=== PATIENT | female | born 1995 | race Caucasian/White ===

== ENCOUNTER → 2024-11-09 | Day surgery (SDC) | payer OTHER ==
[~2024-11-09] MED LIST: CIPRO500 MG PO; CLONAZEPAM1 MG PO; FLOMAX0.4 MG PO; HYDROCODON-ACE1 EAC9 PO; HYDROMORPHONE 1MG/1ML INJ ONE; LIDOCAINE HCL 2% LOCAL INJ 5 ML SDV VIAL INJ ONE; MIDAZOLAM HCL 2 MG/2 ML VIAL ONE; MIDODRINE HCL5 MG PO; NEXPLANON68 MG TD; NURTEC ODT75 MG PO; ONDANSETRON HCL INJ 2MG/ML 2ML 2 MG/ML VIAL ONE; ONDANSETRON ODT8 MG PO; OXYBUTYNIN CHLOR5 MG PO; PHENAZOPYRIDINE HCL 100 MG TAB ONE; PHENERGAN50 MG/1 ML PO; PROAIR DIGIHAL90 MCG INH; PROMETHAZINE12.5 M1 PO; PROPOFOL IV EMULSION 10 MG/ML 20 ML VIAL ONE; PROPRANOLOL HCL10 MG PO; SEROQUEL100 MG PO; TIZANIDINE HCL4 M1 PO; TIZANIDINE HCL4 MG PO; TRAMADOL HCL 50 MG TAB ONE; XANAX0.5 MG PO; [UNRECOGNIZED DRUG - OTHER] IV; [UNRECOGNIZED DRUG - OTHER] PO
[2024-11-09] MEDS: CEFTRIAXONE 1 GM VIAL ONE (12:39)
[2024-11-09 12:40] LABS: BASOPHILS % 0.4 % (0.0-1.0); EOSINOPHILS # (AUTO) 0.1 (0.0-0.4); EOSINOPHILS % 1.1 % (0.0-6.0); HEMATOCRIT 38.2 % (34.2-44.1); HEMOGLOBIN 12.3 g/dL (12.0-16.0); LYMPHOCYTES # (AUTO) 1.9 (1.0-3.2); LYMPHOCYTES % 24.1 % (18.0-39.1); MEAN CORPUSCULAR HEMOGLOBIN 29.6 pg (28-32); MEAN CORPUSCULAR HGB CONC 32.2 g/dL (31-35); MONOCYTES # (AUTO) 0.5 (0.2-0.8); MONOCYTES % 6.3 % (4.4-11.3); NEUTROPHILS # (AUTO) 5.4 (2.1-6.9); NEUTROPHILS % 67.8 % (38.7-80.0); PLATELET COUNT 334 x10e3/uL (140-360); RED BLOOD COUNT 4.15 x10e6/uL (3.6-5.1); WHITE BLOOD COUNT 7.93 x10e3/uL (4.8-10.8)
[2024-11-09] MEDS: GENTAMICIN 80MG/NS 100 ML 200 ML IV ONE (12:40)
[2024-11-09] MEDS: LACTATED RINGER'S 1,000 ML ONE (12:40)
[2024-11-09 12:59] LABS: ANION GAP 15.6 mmol/L (8-16); CALCIUM 9.7 mg/dL (8.4-10.2); CREATININE, SERUM 0.69 mg/dL (0.57-1.11); POTASSIUM 3.6 mmol/L (3.5-5.1)
[2024-11-09 16:12] VITALS: TEMP 97.9
[2024-11-09] MEDS: HYDROMORPHONE 1MG/1ML INJ IV ONE ×4 (16:14→16:35)
[2024-11-09] MEDS: PHENAZOPYRIDINE HCL 100 MG TAB PO ONE (16:25)
[2024-11-09] MEDS: TRAMADOL HCL 50 MG TAB PO ONE (17:05)
[2024-11-09 17:30] VITALS: BP 120/83; PULSE 75; RESP 18; O2SAT 100
== END | disposition home or self-care (01) ==
LOC: OR 11:19
PROVIDERS: ATTEND Urology
DX: R33.8 Other retention of urine (principal); N39.0 Urinary tract infection, site not specified; R31.29 Other microscopic hematuria; N81.2 Incomplete uterovaginal prolapse; G65.0 Sequelae of Guillain-Barre syndrome; N31.2 Flaccid neuropathic bladder, not elsewhere classified; G61.81 Chronic inflammatory demyelinating polyneuritis; K21.9 Gastro-esophageal reflux disease without esophagitis; J45.909 Unspecified asthma, uncomplicated; G62.9 Polyneuropathy, unspecified; G43.909 Migraine, unspecified, not intractable, without status migrainosus; Z79.899 Other long term (current) drug therapy
CPT/HCPCS: 36415; 51040; 74420; 80048; 81025; 85025; 87086; C1758; C1769; J0696; J1171; J1580; J2003; J2250; J2405; J2704; J7121

== ENCOUNTER 2024-11-25 20:49 | Inpatient (IN) | payer SELFPAY ==
[~2024-11-25] VITALS: Ht 157.5 cm; Wt 62.6 kg
[~2024-11-25 20:49] MED LIST changes: -HYDROMORPHONE 1MG/1ML INJ ONE; -LIDOCAINE HCL 2% LOCAL INJ 5 ML SDV VIAL INJ ONE; -MIDAZOLAM HCL 2 MG/2 ML VIAL ONE; -ONDANSETRON HCL INJ 2MG/ML 2ML 2 MG/ML VIAL ONE; -OXYBUTYNIN CHLOR5 MG PO; -PHENAZOPYRIDINE HCL 100 MG TAB ONE; -PROMETHAZINE12.5 M1 PO; -PROPOFOL IV EMULSION 10 MG/ML 20 ML VIAL ONE; -TRAMADOL HCL 50 MG TAB ONE
[2024-11-25 21:15] VITALS: TEMP 99
[2024-11-25 22:08] LABS: COLOR,URINE RED (YELLOW); PREGNANCY TEST, URINE NEGATIVE (NEGATIVE)
[2024-11-25 22:22] LABS: CLARITY,URINE SL CLOUDY (CLEAR)
[2024-11-25 22:34] LABS: BASOPHILS # (AUTO) 0.1 (0.0-0.1); BASOPHILS % 0.6 % (0.0-1.0); EOSINOPHILS # (AUTO) 0.4 (0.0-0.4); EOSINOPHILS % 4.2 % (0.0-6.0); HEMATOCRIT 36.8 % (34.2-44.1); HEMOGLOBIN 12.5 g/dL (12.0-16.0); LYMPHOCYTES # (AUTO) 2.6 (1.0-3.2); LYMPHOCYTES % 29.8 % (18.0-39.1); MEAN CORPUSCULAR HEMOGLOBIN 29.3 pg (28-32); MEAN CORPUSCULAR VOLUME 86.2 fL (81-99); MONOCYTES # (AUTO) 0.7 (0.2-0.8); MONOCYTES % 7.7 % (4.4-11.3); NEUTROPHILS % 57.5 % (38.7-80.0); PLATELET COUNT 376 x10e3/uL (140-360); RED BLOOD COUNT 4.27 x10e6/uL (3.6-5.1); RED CELL DISTRIBUTION WIDTH 12.3 % (11.7-14.4)
[2024-11-25 22:43] LABS: BILIRUBIN,URINE NEGATIVE (NEGATIVE); GLUCOSE, URINE NEGATIVE (NEGATIVE); KETONES,URINE 1+ (NEGATIVE); LEUKOCYTE ESTERASE ,URINE NEGATIVE (NEGATIVE); NITRITE,URINE NEGATIVE (NEGATIVE); PH,URINE 6.5 (5 - 7); PROTEIN,URINE DIPSTICK >=300 (NEGATIVE); URINE UROBILINOGEN 0.2 mg/dL (0.2 - 1)
[2024-11-25] MEDS: KETOROLAC TROMETHAMINE 30 MG/ML VIAL IV STA (22:52)
[2024-11-25 22:58] LABS: ANION GAP 18.8 mmol/L (8-16); CREATININE, SERUM 0.71 mg/dL (0.57-1.11); POTASSIUM 3.8 mmol/L (3.5-5.1)
[2024-11-25 23:04] LABS: RBC,URINE >50 /HPF (0-5)
[2024-11-25 23:05] LABS: BACTERIA,URINE MODERATE /HPF; EPITHELIAL CELLS,URINE FEW /LPF
[2024-11-25] MEDS ORDERED: IOPAMIDOL 370 MG/ML 100 ML INFUS..BTL INJ ONE (23:55)
[2024-11-25] MEDS ORDERED: SODIUM CHLORIDE 0.9% 200 ML ONE (23:55)
[2024-11-26] VITALS (7 sets, daily range): BP systolic 92–118; BP diastolic 55–85; PULSE 55–87; RESP 12–18; TEMP 97.9–98.8; O2SAT 99–100
[2024-11-26] MEDS: ONDANSETRON HCL INJ 2MG/ML 2ML 2 MG/ML VIAL IV STA
[2024-11-26] MEDS: Morphine 4mg INJECTION 4 MG/ML INJ IV ONE (00:37)
[2024-11-26] MEDS: ONDANSETRON HCL INJ 2MG/ML 2ML 2 MG/ML VIAL IV PRN (04:28)
[2024-11-26] MEDS: HYDROMORPHONE 1MG/1ML INJ IV PRN (04:28)
[2024-11-26] MEDS: SODIUM CHLORIDE 0.9% 1000ML 1,000 ML IV ONE (04:29)
[2024-11-26] MEDS ORDERED: PROMETHAZINE12.5 M1 PO (05:50)
[2024-11-26] MEDS ORDERED: OXYBUTYNIN CHLOR5 MG PO (06:16)
[2024-11-26] MEDS: SOLIFENACIN SUCCINATE 5 MG TAB PO SCH (09:43)
[2024-11-26] MEDS: PHENAZOPYRIDINE HCL 100 MG TAB PO SCH (09:43)
[2024-11-26] MEDS: GABAPENTIN 100 MG CAP PO SCH (09:43)
[2024-11-26] MEDS: KETOROLAC TROMETHAMINE 30 MG/ML VIAL IV PRN (09:44)
[2024-11-26] MEDS: CELECOXIB 100 MG CAP PO SCH (09:44)
[2024-11-26] MEDS: SODIUM CHLORIDE 0.9% 1000ML 1,000 ML IV SCH (11:07)
[2024-11-26] MEDS: ALPRAZOLAM 0.5 MG TAB PO SCH (13:27)
[2024-11-26] MEDS: TAMSULOSIN HCL 0.4 MG CAP PO SCH (16:36)
[2024-11-26] MEDS: TRAMADOL HCL 50 MG TAB PO PRN (20:21)
[2024-11-26] MEDS: QUETIAPINE FUMARATE 100 MG TAB PO SCH (20:21)
[2024-11-27] VITALS (10 sets, daily range): BP systolic 92–127; BP diastolic 46–86; PULSE 59–106; RESP 16–18; TEMP 97.3–98.7; O2SAT 99–100
[2024-11-27] MEDS: TIZANIDINE HCL 4 MG TAB PO SCH (04:53)
[2024-11-27 05:52] LABS: BASOPHILS # (AUTO) 0.1 (0.0-0.1); BASOPHILS % 0.9 % (0.0-1.0); EOSINOPHILS # (AUTO) 0.4 (0.0-0.4); EOSINOPHILS % 7.6 % (0.0-6.0); HEMATOCRIT 32.9 % (34.2-44.1); HEMOGLOBIN 10.4 g/dL (12.0-16.0); LYMPHOCYTES # (AUTO) 2.4 (1.0-3.2); LYMPHOCYTES % 41.1 % (18.0-39.1); MEAN CORPUSCULAR HEMOGLOBIN 29.5 pg (28-32); MEAN CORPUSCULAR HGB CONC 31.6 g/dL (31-35); MEAN CORPUSCULAR VOLUME 93.2 fL (81-99); MONOCYTES # (AUTO) 0.5 (0.2-0.8); MONOCYTES % 8.1 % (4.4-11.3); NEUTROPHILS # (AUTO) 2.5 (2.1-6.9); NEUTROPHILS % 42.3 % (38.7-80.0); PLATELET COUNT 278 x10e3/uL (140-360); RED BLOOD COUNT 3.53 x10e6/uL (3.6-5.1); RED CELL DISTRIBUTION WIDTH 12.1 % (11.7-14.4); WHITE BLOOD COUNT 5.81 x10e3/uL (4.8-10.8)
[2024-11-27 06:37] LABS: ANION GAP 14.8 mmol/L (8-16); CALCIUM 8.6 mg/dL (8.4-10.2); CREATININE, SERUM 0.66 mg/dL (0.57-1.11); POTASSIUM 3.8 mmol/L (3.5-5.1)
[2024-11-27] MEDS: PROPRANOLOL HCL 10 MG TAB PO SCH (09:00)
[2024-11-27] MEDS: MIDODRINE HCL 5 MG TABLET PO PRN (10:01)
[2024-11-27] MEDS: Morphine 2mg Syringe 2 MG/ML SYR IV PRN (16:18)
[2024-11-28 03:38] VITALS: BP 91/53; PULSE 65; RESP 18; TEMP 98.1; O2SAT 100
[2024-11-28 08:00] VITALS: BP 110/65; PULSE 65; RESP 16; TEMP 98; O2SAT 100
[2024-11-28 12:00] VITALS: BP 121/74; PULSE 81; RESP 17; TEMP 98; O2SAT 99
[2024-11-28 16:00] VITALS: BP 123/61; PULSE 93; RESP 18; TEMP 97.9; O2SAT 99
[2024-11-28 19:38] VITALS: BP 121/75; PULSE 84; RESP 18; TEMP 98.6; O2SAT 100
== END 2024-11-28 20:30 | disposition home or self-care (01) | DRG 699 ==
LOC: ER 21:32 → ERHOLD 11-26 04:09 → MED/SURG2 11-26 04:38 → OBSVTOIN 11-28 10:15
PROVIDERS: ADMIT Internal Medicine; ATTEND Internal Medicine
DX: T83.84XA Pain due to genitourinary prosthetic devices, implants and grafts, initial encounter (principal); G61.81 Chronic inflammatory demyelinating polyneuritis; N30.91 Cystitis, unspecified with hematuria; N32.81 Overactive bladder; N32.89 Other specified disorders of bladder; N31.9 Neuromuscular dysfunction of bladder, unspecified; R80.9 Proteinuria, unspecified; Z93.59 Other cystostomy status; F41.9 Anxiety disorder, unspecified; G90.A Postural orthostatic tachycardia syndrome [POTS]; Z87.442 Personal history of urinary calculi; Z79.899 Other long term (current) drug therapy
CPT/HCPCS: 36415; 74178; 80048; 81001; 81025; 85025; 87086; 99284; G0378; J0692; J0696; J1171; J1885; J2270; J2405; J7030; J7050; Q9967

== ENCOUNTER 2025-04-09 21:10 | Inpatient (IN) | payer SELFPAY ==
[~2025-04-09] VITALS: Ht 157.5 cm; Wt 62.6 kg
[~2025-04-09 21:10] MED LIST changes: +OXYBUTYNIN CHLOR5 MG PO; +PROMETHAZINE12.5 M1 PO
[2025-04-09 21:26] VITALS: TEMP 99
[2025-04-09] MEDS: SODIUM CHLORIDE 0.9% 1000ML 1,000 ML IV ONE (22:40)
[2025-04-09] MEDS: PROMETHAZINE 25MG/ NS 50ML (IV) IV ONE (22:41)
[2025-04-09] MEDS: ONDANSETRON HCL INJ 2MG/ML 2ML 2 MG/ML VIAL IV STA (22:41)
[2025-04-09 22:53] LABS: BASOPHILS # (AUTO) 0.1 (0.0-0.1); BASOPHILS % 0.5 % (0.0-1.0); EOSINOPHILS # (AUTO) 0.1 (0.0-0.4); EOSINOPHILS % 0.4 % (0.0-6.0); HEMATOCRIT 42.5 % (34.2-44.1); HEMOGLOBIN 14.6 g/dL (12.0-16.0); LYMPHOCYTES # (AUTO) 2.5 (1.0-3.2); LYMPHOCYTES % 18.3 % (18.0-39.1); MEAN CORPUSCULAR HEMOGLOBIN 29.1 pg (28-32); MEAN CORPUSCULAR HGB CONC 34.4 g/dL (31-35); MEAN CORPUSCULAR VOLUME 84.7 fL (81-99); MONOCYTES # (AUTO) 1.2 (0.2-0.8); MONOCYTES % 8.9 % (4.4-11.3); NEUTROPHILS # (AUTO) 9.8 (2.1-6.9); NEUTROPHILS % 71.5 % (38.7-80.0); PLATELET COUNT 463 x10e3/uL (140-360); RED BLOOD COUNT 5.02 x10e6/uL (3.6-5.1); RED CELL DISTRIBUTION WIDTH 12.5 % (11.7-14.4); WHITE BLOOD COUNT 13.76 x10e3/uL (4.8-10.8)
[2025-04-09 22:55] LABS: BILIRUBIN,URINE 1+ (NEGATIVE); CLARITY,URINE CLOUDY (CLEAR); COLOR,URINE AMBER (YELLOW); GLUCOSE, URINE NEGATIVE (NEGATIVE); KETONES,URINE >=160 (NEGATIVE); LEUKOCYTE ESTERASE ,URINE 1+ (NEGATIVE); NITRITE,URINE NEGATIVE (NEGATIVE); PH,URINE 6 (5 - 7); PROTEIN,URINE DIPSTICK >=300 (NEGATIVE); URINE UROBILINOGEN 0.2 mg/dL (0.2 - 1)
[2025-04-09 23:06] LABS: ALBUMIN 4.9 g/dL (3.5-5.0); ALBUMIN/GLOBULIN RATIO 1.6 (0.8-2.0); ANION GAP 21.7 mmol/L (8-16); BILIRUBIN,TOTAL 0.8 mg/dL (0.2-1.2); CREATININE, SERUM 0.75 mg/dL (0.57-1.11); POTASSIUM 3.7 mmol/L (3.5-5.1); TOTAL PROTEIN 7.9 g/dL (6.5-8.1)
[2025-04-09 23:11] LABS: CALCIUM 9.9 mg/dL (8.4-10.2)
[2025-04-09 23:13] LABS: RBC,URINE >50 /HPF (0-5); WBC,URINE (MAN) >50 /HPF (0-5)
[2025-04-09 23:14] LABS: BACTERIA,URINE MANY /HPF; EPITHELIAL CELLS,URINE FEW /LPF; RENAL EPITHELIAL CELLS,URINE FEW; TRANSITIONAL EPI CELLS,URINE FEW
[2025-04-10] VITALS (11 sets, daily range): BP systolic 101–134; BP diastolic 67–78; PULSE 58–95; RESP 18–20; TEMP 98.2–98.8; O2SAT 97–100
[2025-04-10] MEDS: SODIUM CHLORIDE 0.9% 1000ML 1,000 ML IV SCH (00:16)
[2025-04-10] MEDS: ONDANSETRON HCL INJ 2MG/ML 2ML 2 MG/ML VIAL IV PRN (00:19)
[2025-04-10] MEDS: Morphine 4mg INJECTION 4 MG/ML INJ IV PRN (00:19)
[2025-04-10] MEDS ORDERED: ALPRAZOLAM XR1 MG PO (01:11)
[2025-04-10] MEDS ORDERED: HYDROCODON-ACE1 EA15 PO (01:13)
[2025-04-10] MEDS ORDERED: CRANBERRY200 MG PO (01:14)
[2025-04-10 09:27] LABS: BASOPHILS # (AUTO) 0.1 (0.0-0.1); BASOPHILS % 0.5 % (0.0-1.0); EOSINOPHILS # (AUTO) 0.2 (0.0-0.4); EOSINOPHILS % 1.5 % (0.0-6.0); HEMATOCRIT 34.7 % (34.2-44.1); HEMOGLOBIN 11.9 g/dL (12.0-16.0); LYMPHOCYTES # (AUTO) 2.4 (1.0-3.2); LYMPHOCYTES % 22.2 % (18.0-39.1); MEAN CORPUSCULAR HEMOGLOBIN 29.4 pg (28-32); MEAN CORPUSCULAR HGB CONC 34.3 g/dL (31-35); MEAN CORPUSCULAR VOLUME 85.7 fL (81-99); MONOCYTES # (AUTO) 1.2 (0.2-0.8); MONOCYTES % 11.3 % (4.4-11.3); NEUTROPHILS # (AUTO) 6.9 (2.1-6.9); NEUTROPHILS % 64.1 % (38.7-80.0); PLATELET COUNT 319 x10e3/uL (140-360); RED BLOOD COUNT 4.05 x10e6/uL (3.6-5.1); RED CELL DISTRIBUTION WIDTH 12.6 % (11.7-14.4); WHITE BLOOD COUNT 10.77 x10e3/uL (4.8-10.8)
[2025-04-10 10:02] LABS: ALBUMIN 3.8 g/dL (3.5-5.0); ALBUMIN/GLOBULIN RATIO 1.7 (0.8-2.0); ANION GAP 16.6 mmol/L (8-16); BILIRUBIN,TOTAL 1.8 mg/dL (0.2-1.2); CALCIUM 8.3 mg/dL (8.4-10.2); CREATININE, SERUM 0.67 mg/dL (0.57-1.11); POTASSIUM 3.6 mmol/L (3.5-5.1); TOTAL PROTEIN 6.1 g/dL (6.5-8.1)
[2025-04-10] MEDS ORDERED: HYDRALAZINE HCL 20 MG/ML VIAL IV PRN (14:30)
[2025-04-10] MEDS ORDERED: ALBUTEROL/IPRATROPIUM 3 ML NEB NEB PRN (14:30)
[2025-04-10] MEDS ORDERED: SIMETHICONE 80 MG CHEW PO PRN (14:30)
[2025-04-10] MEDS ORDERED: DOCUSATE SODIUM 100 MG CAP PO PRN (14:30)
[2025-04-10] MEDS ORDERED: BENZONATATE 100 MG CAP PO PRN (14:30)
[2025-04-10] MEDS ORDERED: LIDOCAINE 4% PATCH TP PRN (14:30)
[2025-04-10] MEDS ORDERED: DIPHENHYDRAMINE HCL 25 MG CAP PO PRN (14:30)
[2025-04-10] MEDS ORDERED: MIDODRINE HCL 5 MG TABLET PO PRN (15:00)
[2025-04-10] MEDS ORDERED: TIZANIDINE HCL 4 MG TAB PO PRN (15:00)
[2025-04-10] MEDS: ENOXAPARIN SOD INJ 40 MG/0.4 ML SYR SC SCH (17:09)
[2025-04-10] MEDS: SODIUM BICARBONATE 650 MG TAB PO SCH (17:09)
[2025-04-10] MEDS: METOCLOPRAMIDE HCL 10 MG/2ML VIAL IV SCH (17:09)
[2025-04-10] MEDS: ALPRAZOLAM 0.5 MG TAB PO PRN (20:55)
[2025-04-10] MEDS: ACETAMINOPHEN 325 MG TAB PO PRN (20:56)
[2025-04-10] MEDS: QUETIAPINE FUMARATE 100 MG TAB PO SCH (20:57)
[2025-04-10] MEDS: MELATONIN 5 MG TABLET PO PRN (21:15)
[2025-04-10] MEDS: DEXTROSE 50% SYRINGE 50 ML IV PRN (21:18)
[2025-04-11] VITALS (10 sets, daily range): BP systolic 106–125; BP diastolic 58–83; PULSE 60–94; RESP 18–20; TEMP 97.8–98.4; O2SAT 96–100
[2025-04-11 06:06] LABS: BASOPHILS # (AUTO) 0.1 (0.0-0.1); BASOPHILS % 0.7 % (0.0-1.0); EOSINOPHILS # (AUTO) 0.2 (0.0-0.4); HEMATOCRIT 34.6 % (34.2-44.1); HEMOGLOBIN 11.8 g/dL (12.0-16.0); LYMPHOCYTES # (AUTO) 2.6 (1.0-3.2); LYMPHOCYTES % 31.8 % (18.0-39.1); MEAN CORPUSCULAR HEMOGLOBIN 29.3 pg (28-32); MEAN CORPUSCULAR HGB CONC 34.1 g/dL (31-35); MEAN CORPUSCULAR VOLUME 85.9 fL (81-99); MONOCYTES # (AUTO) 0.8 (0.2-0.8); MONOCYTES % 9.9 % (4.4-11.3); NEUTROPHILS # (AUTO) 4.5 (2.1-6.9); NEUTROPHILS % 55.4 % (38.7-80.0); PLATELET COUNT 321 x10e3/uL (140-360); RED BLOOD COUNT 4.03 x10e6/uL (3.6-5.1); RED CELL DISTRIBUTION WIDTH 12.6 % (11.7-14.4); WHITE BLOOD COUNT 8.07 x10e3/uL (4.8-10.8)
[2025-04-11 06:36] LABS: ANION GAP 15.7 mmol/L (8-16); BLOOD UREA NITROGEN < 5 mg/dL (7-26); CALCIUM 8.8 mg/dL (8.4-10.2); CARBON DIOXIDE 13 mmol/L (22-29); CHLORIDE 112 mmol/L (98-107); CREATININE, SERUM 0.65 mg/dL (0.57-1.11); EST GLOMERULAR FILTRATION RATE 123 ML/MIN (>=60); GLUCOSE 66 mg/dL (74-118); POTASSIUM 3.7 mmol/L (3.5-5.1); SODIUM 137 mmol/L (136-145)
[2025-04-11 07:16] LABS: BUN/CREATININE RATIO 8 (6-25)
[2025-04-11] MEDS: PANTOPRAZOLE SOD 40 MG TABEC PO SCH ×2 (07:30→15:33)
[2025-04-11] MEDS: DEXTROSE 5%/0.45% SOD CHL 1,000 ML IV SCH (12:14)
[2025-04-11] MEDS ORDERED: DEXTROSE 50% SYRINGE 50 ML IV PRN (12:15)
[2025-04-11] MEDS: SODIUM BICARBONATE 8.4% INJ 50 ML SYR IV ONE (15:32)
[2025-04-11] MEDS: SUCRALFATE 1 GM/10 ML SUSP PO SCH (15:33)
[2025-04-11] MEDS: KETOROLAC TROMETHAMINE 30 MG/ML VIAL IV PRN (16:04)
[2025-04-12] VITALS (8 sets, daily range): BP systolic 113–126; BP diastolic 71–84; PULSE 59–84; RESP 17–20; TEMP 98.1–99; O2SAT 96–100
[2025-04-12] MEDS: PHENAZOPYRIDINE HCL 100 MG TAB PO PRN (14:36)
[2025-04-12 15:20] LABS: BASOPHILS % 0.5 % (0.0-1.0); EOSINOPHILS # (AUTO) 0.1 (0.0-0.4); EOSINOPHILS % 2.1 % (0.0-6.0); HEMATOCRIT 34.2 % (34.2-44.1); HEMOGLOBIN 11.7 g/dL (12.0-16.0); LYMPHOCYTES % 32.5 % (18.0-39.1); MEAN CORPUSCULAR HEMOGLOBIN 29.2 pg (28-32); MEAN CORPUSCULAR HGB CONC 34.2 g/dL (31-35); MEAN CORPUSCULAR VOLUME 85.3 fL (81-99); MONOCYTES # (AUTO) 0.7 (0.2-0.8); MONOCYTES % 11.3 % (4.4-11.3); NEUTROPHILS # (AUTO) 3.3 (2.1-6.9); NEUTROPHILS % 53.3 % (38.7-80.0); PLATELET COUNT 304 x10e3/uL (140-360); RED BLOOD COUNT 4.01 x10e6/uL (3.6-5.1); RED CELL DISTRIBUTION WIDTH 12.5 % (11.7-14.4); WHITE BLOOD COUNT 6.13 x10e3/uL (4.8-10.8)
[2025-04-12 15:49] LABS: BLOOD UREA NITROGEN < 5 mg/dL (7-26); BUN/CREATININE RATIO 8 (6-25); CALCIUM 8.7 mg/dL (8.4-10.2); CARBON DIOXIDE 20 mmol/L (22-29); CHLORIDE 108 mmol/L (98-107); CREATININE, SERUM 0.64 mg/dL (0.57-1.11); EST GLOMERULAR FILTRATION RATE 123 ML/MIN (>=60); GLUCOSE 77 mg/dL (74-118); SODIUM 140 mmol/L (136-145)
[2025-04-12] MEDS: HYOSCYAMINE 0.125 MG TAB PO PRN (15:52)
[2025-04-12] MEDS: METOCLOPRAMIDE HCL 10 MG/2ML VIAL IV SCH (17:43)
[2025-04-12] MEDS ORDERED: METOCLOPRAMIDE HCL 10 MG/2ML VIAL IV SCH (18:00)
[2025-04-13] VITALS (10 sets, daily range): BP systolic 108–138; BP diastolic 70–87; PULSE 59–96; RESP 18–20; TEMP 98.1–98.7; O2SAT 97–100
[2025-04-13 05:56] LABS: BASOPHILS % 0.6 % (0.0-1.0); EOSINOPHILS # (AUTO) 0.3 (0.0-0.4); EOSINOPHILS % 4.8 % (0.0-6.0); HEMATOCRIT 31.5 % (34.2-44.1); HEMOGLOBIN 11.2 g/dL (12.0-16.0); LYMPHOCYTES # (AUTO) 2.4 (1.0-3.2); LYMPHOCYTES % 46.4 % (18.0-39.1); MEAN CORPUSCULAR HEMOGLOBIN 29.6 pg (28-32); MEAN CORPUSCULAR HGB CONC 35.6 g/dL (31-35); MEAN CORPUSCULAR VOLUME 83.1 fL (81-99); MONOCYTES # (AUTO) 0.6 (0.2-0.8); MONOCYTES % 11.6 % (4.4-11.3); NEUTROPHILS # (AUTO) 1.9 (2.1-6.9); NEUTROPHILS % 36.4 % (38.7-80.0); PLATELET COUNT 278 x10e3/uL (140-360); RED BLOOD COUNT 3.79 x10e6/uL (3.6-5.1); RED CELL DISTRIBUTION WIDTH 12.5 % (11.7-14.4); WHITE BLOOD COUNT 5.24 x10e3/uL (4.8-10.8)
[2025-04-13 06:17] LABS: ANION GAP 12.9 mmol/L (8-16); BLOOD UREA NITROGEN < 5 mg/dL (7-26); BUN/CREATININE RATIO 8 (6-25); CALCIUM 8.3 mg/dL (8.4-10.2); CARBON DIOXIDE 18 mmol/L (22-29); CHLORIDE 110 mmol/L (98-107); CREATININE, SERUM 0.61 mg/dL (0.57-1.11); EST GLOMERULAR FILTRATION RATE 125 ML/MIN (>=60); GLUCOSE 103 mg/dL (74-118); SODIUM 138 mmol/L (136-145)
[2025-04-13 06:21] LABS: POTASSIUM 2.9 mmol/L (3.5-5.1)
[2025-04-13] MEDS: POTASSIUM CHLORIDE 20 MEQ TAB CR PO PRN (06:51)
[2025-04-13] MEDS: POTASSIUM CHLORIDE 20 MEQ TAB CR PO ONE (15:52)
[2025-04-14] VITALS (8 sets, daily range): BP systolic 110–126; BP diastolic 71–85; PULSE 65–84; RESP 16–18; TEMP 97.9–98.1; O2SAT 100
[2025-04-14 06:02] LABS: CLARITY,URINE CLEAR (CLEAR); COLOR,URINE YELLOW (YELLOW); LEUKOCYTE ESTERASE ,URINE TRACE (NEGATIVE); PH,URINE 7 (5 - 7)
[2025-04-14 06:03] LABS: BILIRUBIN,URINE NEGATIVE (NEGATIVE); GLUCOSE, URINE NEGATIVE (NEGATIVE); KETONES,URINE NEGATIVE (NEGATIVE); NITRITE,URINE NEGATIVE (NEGATIVE); PROTEIN,URINE DIPSTICK NEGATIVE (NEGATIVE); URINE UROBILINOGEN 0.2 mg/dL (0.2 - 1)
[2025-04-14 06:14] LABS: BLOOD UREA NITROGEN < 5 mg/dL (7-26); BUN/CREATININE RATIO 8 (6-25); CALCIUM 8.2 mg/dL (8.4-10.2); CARBON DIOXIDE 20 mmol/L (22-29); CHLORIDE 110 mmol/L (98-107); CREATININE, SERUM 0.63 mg/dL (0.57-1.11); EST GLOMERULAR FILTRATION RATE 124 ML/MIN (>=60); GLUCOSE 99 mg/dL (74-118); SODIUM 140 mmol/L (136-145)
[2025-04-14 07:03] LABS: BACTERIA,URINE FEW /HPF; EPITHELIAL CELLS,URINE FEW /LPF; RBC,URINE >50 /HPF (0-5)
[2025-04-14] MEDS: ONDANSETRON HCL INJ 2MG/ML 2ML 2 MG/ML VIAL IV SCH (08:21)
[2025-04-14] MEDS: MECLIZINE HCL 12.5 MG TAB PO SCH ×2 (08:36→15:00)
[2025-04-14] MEDS ORDERED: MECLIZINE HCL 12.5 MG TAB PO SCH (09:00)
[2025-04-14] MEDS ORDERED: LORAZEPAM INJ 2 MG/ML VIAL IV PRN (14:30)
[2025-04-14] MEDS ORDERED: IOPAMIDOL 370 MG/ML 100 ML INFUS..BTL INJ ONE (16:30)
[2025-04-15] VITALS (7 sets, daily range): BP systolic 114–135; BP diastolic 71–86; PULSE 66–98; RESP 18; TEMP 97.7–98.3; O2SAT 98–100
[2025-04-15] MEDS ORDERED: METOCLOPRAMIDE HCL 10 MG/2ML VIAL IV SCH
[2025-04-15] MEDS: FLUCONAZOLE 100 MG TAB PO ONE (16:02)
== END 2025-04-15 16:24 | disposition home or self-care (01) | DRG 690 ==
LOC: ER 21:32 → ERHOLD 23:47 → MED/SURG2 04-10 00:55
PROVIDERS: ADMIT Internal Medicine; ATTEND Internal Medicine
PROC: 0T2BX0Z Change Drainage Device in Bladder, External Approach (ICD-10-PCS; principal; 2025-04-14)
DX: N39.0 Urinary tract infection, site not specified (principal); N17.9 Acute kidney failure, unspecified; G61.81 Chronic inflammatory demyelinating polyneuritis; G89.4 Chronic pain syndrome; Z43.5 Encounter for attention to cystostomy; E86.0 Dehydration; N32.89 Other specified disorders of bladder; F41.9 Anxiety disorder, unspecified; R11.2 Nausea with vomiting, unspecified; E16.2 Hypoglycemia, unspecified; N28.1 Cyst of kidney, acquired; R31.29 Other microscopic hematuria; N31.9 Neuromuscular dysfunction of bladder, unspecified; R33.9 Retention of urine, unspecified; D64.9 Anemia, unspecified; N81.2 Incomplete uterovaginal prolapse; Z87.442 Personal history of urinary calculi
CPT/HCPCS: 36415; 74018; 74177; 80048; 80053; 81001; 81025; 82948; 83690; 84702; 85025; 87040; 87086; 94799; 99284; J1650; J1885; J2270; J2405; J2470; J2543; J2550; J2765; J7030; J7799; Q9967